=== PATIENT | male | born 1990 | race Caucasian/White ===

== ENCOUNTER 2020-06-06 11:07 | Emergency (ER) | payer OTHER ==
--- NOTE | 2020-06-06 12:42 | ED Physician Documentation ---
History of Present Illness - Stated complaint Stated Complaint: HIGH BLOOD PRESSURE - Chief complaint Chief Complaint: Cardiac - History obtained from History obtained from: Patient - History of Present Illness Timing: Today Pain level max: 0 Pain level now: 0 - Additonal information Additional information: 30-year-old male presents to the emergency department stating that his blood pressure has been high for the past several months. Has an appointment with a new doctor on August 05. Currently asymptomatic. No headache, no visual changes, no chest pain, no shortness of breath. No other medical history. Review of Systems Constitutional: denies: Fever, Chills GI: denies: Vomiting, Diarrhea Skin: denies: Rash Musculoskeletal: denies: Neck pain, Back pain Neurologic: denies: Headache PD PAST MEDICAL HISTORY - Past Medical History Past Medical History: No - Allergies Allergies/Adverse Reactions: Allergies Allergy/AdvReac Type Severity Reaction Status Date / Time No Known Drug Allergies Allergy Verified 06/06/20 11:18 - Social History Does the pt smoke?: No Smoking Status: Never smoker PD ED PE NORMAL - Vitals Vital signs reviewed: Yes - General General: Alert and oriented X 3, No acute distress - HEENT HEENT: Moist mucous membranes - Neck Neck: Supple, no meningeal sign - Cardiac Cardiac: RRR - Respiratory Respiratory: No respiratory distress, Clear bilaterally - Derm Derm: Warm and dry - Extremities Extremities: No edema - Neuro Neuro: Alert and oriented X 3 - Psych Psych: Normal mood, Normal affect Results - Vitals Vitals: Vital Signs - 24 hr 06/06/20 11:13 Temperature 36.3 C L Heart Rate 82 Respiratory 16 Rate Blood Pressure 150/98 H O2 Saturation 100 Oxygen O2 Source Room air PD MEDICAL DECISION MAKING - ED course Complexity details: considered differential, d/w patient ED course: Asymptomatic hypertension. We discussed medications, but will hold off at this time until he can create a log of his blood pressure and follow-up with his doctor. Patient is well-appearing, nontoxic. Afebrile. Patient counseled regarding signs and symptoms for which I believe and urgent re-evaluation would be necessary. Patient with good understanding of and agreement to plan and is comfortable going home at this time This document was made in part using voice recognition software. While efforts are made to proofread this document, sound alike and grammatical errors may occur. Departure - Departure Disposition: 01 Home, Self Care Clinical Impression: Hypertension Qualifiers: Hypertension type: unspecified Qualified Code(s): I10 - Essential (primary) hypertension Condition: Good Instructions: ED Hypertension Poss Follow-Up: your,doctor as scheduled [Other] Comments: Take your blood pressure every few days in the morning when you first wake up and every few days in the night before you go to bed. Keep a log of this and take it with you to your appointment. That way they will be able to determine if you need to be started on medication or not. Drink plenty of water. Return if you worsen.
[2020-06-06 12:51] VITALS: BP 140/88
== END 2020-06-06 12:49 | disposition home or self-care (01) ==
LOC: ED 11:07
DX: R03.0 Elevated blood-pressure reading, without diagnosis of hypertension (principal)
CPT/HCPCS: 99281; 99283